=== PATIENT | female | born 1995 | race Caucasian/White ===

== ENCOUNTER 2024-05-22 08:01 | Outpatient (CLI) | payer BC, SELFPAY ==
--- NOTE | ~2024-05-22 | US_ITS ---
EXAMINATION: US breast RT limited HISTORY: Palpable left breast lump TECHNIQUE: High resolution limited right breast ultrasound was performed. COMPARISON: None FINDINGS: At the 9:00 position right breast, 11 cm from the nipple, there is a 2.3 x 1.8 x 2.3 cm solid hypoech oic mass. This is well-circumscribed, wider than tall, with mild posterior through transmission. IMPRESSION: 2.3 cm solid mass in the 9:00 position right breast, 11 cm from the nipple, as detailed above. Given patient age and imaging characteristics, fibroadenomas the most likely diagnosis, however more dorsa l lesion cannot be completely excluded. As such, biopsy should be considered to establish histologic diagnosis. Alternatively, six-month follow-up ultrasound could be performed to assess for stability. BI-RADS category 4, suspicious findings. Reviewed, dictated and finalized at location M. IMPRESSION: 2.3 cm solid mass in the 9:00 position right breast, 11 cm from the nipple, as detailed above. Given patient age and imaging characteristics, fibroadenomas t he most likely diagnosis, however more dorsal lesion cannot be completely exclu ded. As such, biopsy should be considered to establish histologic diagnosis. Al ternatively, six-month follow-up ultrasound could be performed to assess for st ability. BI-RADS category 4, suspicious findings.
== END 2024-05-22 08:02 ==
PROVIDERS: PCP Nurse Practitioner; Visit Provider Nurse Practitioner
DX: N63.10 Unspecified lump in the right breast, unspecified quadrant (principal); R92.8 Other abnormal and inconclusive findings on diagnostic imaging of breast
CPT/HCPCS: 76642